=== PATIENT | male | born 1960 | race African-American/Black ===

== ENCOUNTER 2017-08-20 11:09 | Emergency (ER) | payer OTHER ==
[~2017-08-20] VITALS: Ht 182.9 cm; Wt 90.0 kg
[~2017-08-20 11:09] MED LIST: AMOX500C PO; HYDR-3533 PO
[2017-08-20 11:12] VITALS: BP 138/85; PULSE 84; RESP 16; TEMP 98.7; O2SAT 98
[2017-08-20] MEDS ORDERED: IBUP1TAB7 PO (11:43)
[2017-08-20] MEDS ORDERED: AMOX500C PO (11:43)
[2017-08-20] MEDS ORDERED: PERI0.126 SWISH-SPIT (11:43)
--- NOTE | 2017-08-20 11:44 | PD ---
HPI Chief Complaint: Oral / Dental Pain or Problem Time Seen by Provider: 11:34 Travel History International Travel<30 days: No Contact w/Intl Traveler<30days: No Traveled to known affect area: No History of Present Illness HPI 56-year-old male presents emergency Department with complaint of left lower wisdom tooth pain 3 weeks. Denies fever, vomiting. Denies facial edema. Denies ear pain, sore throat. Denies difficulty swallowing, unusual drooling. Rates pain 10/10. Has been taking [id number] medications for pain relief. No known aggravating or relieving factors. Says pain is constant. No established primary care provider. No known allergies. Denies significant past medical history. Has no other medical complaints. No other modifying factors or associated signs and symptoms. PFSH Past Medical History Medical History: Denies Significant Hx Immunizations Current: Yes Social History Alcohol Use: Yes Tobacco Use: No Substance Use: No Allergies-Medications (Allergen,Severity, Reaction): Coded Allergies: No Known Allergies (Unverified Adverse Reaction, Unknown, 08/20/17) Reported Meds & Prescriptions Reported Meds & Active Scripts Active Peridex Liq (Chlorhexidine Gluconate (Mouth) Liq) 0.12% Soln 15 Ml SWISH-SPIT BID 10 Days Ibuprofen 800 Mg Tab 800 Mg PO Q6HR PRN Amoxicillin 500 Mg Cap 500 Mg PO BID 10 Days Review of Systems Except as stated in HPI: all other systems reviewed are Neg Physical Exam Narrative GENERAL: Well-nourished, well-developed black male patient, in no acute distress ; afebrile, nontoxic-appearing SKIN: Warm and dry. HEAD: Atraumatic. Normocephalic. No facial edema, erythema, tenderness on palpation. No lymphadenopathy. EYES: Pupils equal and round. No scleral icterus. No injection or drainage. ENT: Mucosa pink and moist. No erythema or exudates. No uvular edema. No uvular , palatal, or tonsillar deviation. Airway patent. EARS: Bilateral pinnae and external canals appear within normal limits. Bilateral tympanic membranes without erythema, dullness or perforation. MOUTH: Mucous membranes moist, no lesions, tongue and gums appear normal. Tooth #17 with tenderness on palpation. Surrounding gingiva is without erythema , edema, drainage. No obvious abscess noted. NECK: Trachea midline. No lymphadenopathy. CARDIOVASCULAR: Regular rate. RESPIRATORY: No accessory muscle use. GASTROINTESTINAL: Flat. MUSCULOSKELETAL: No obvious deformities. No clubbing. No cyanosis. No edema. NEUROLOGICAL: Awake and alert. Oriented 3. No obvious cranial nerve deficits. Motor grossly within normal limits. Normal speech. PSYCHIATRIC: Appropriate mood and affect; insight and judgment normal. Data Data Last Documented VS Vital Signs Date Time Temp Pulse Resp B/P (MAP) Pulse Ox O2 Delivery O2 Flow Rate FiO2 08/20/17 12:07 08/20/17 11:12 98.7 84 16 98 Room Air Orders Orders Ketorolac Inj (Toradol Inj) (08/20/17 11:45) Ed Discharge Order (08/20/17 11:44) [facility] Medical Decision Making Medical Screen Exam Complete: Yes Emergency Medical Condition: Yes Medical Record Reviewed: Yes Differential Diagnosis Dentalgia, dental abscess, infected dental caries, gingivitis Narrative Course 56-year-old male with tooth #17 dentalgia. No facial edema, erythema. Patient is afebrile and nontoxic-appearing. Denies fever, vomiting. Toradol administered in the ER. Ibuprofen, amoxicillin, Peridex mouth rinse prescribed for home. Instructed patient to follow up with dentist. Emergency dental information sheet provided for follow-up. Instructed patient to follow up with primary care provider. Patient verbalizes understanding and agreement with treatment plan. Patient is medically cleared and stable for discharge. Discussed reasons to return to the emergency department. Patient agrees with treatment plan. The patients vital signs are stable and the patient is stable for outpatient follow-up and treatment. Patient discharged home, stable and in no acute distress. Diagnosis Primary Impression: Toothache Referrals: Dentist Primary Care Physician Patient Instructions: Dental Abscess (ED), Dental Caries (ED), General Instructions, Toothache (ED) Additional Instructions: Complete full course of antibiotics Ibuprofen or Tylenol as directed and as needed to reduce pain and inflammation Use Peridex as directed for oral hygiene Warm or cool compresses to the affected area Follow-up with dentist Follow-up with primary care provider Return to emergency department immediately with worsening of symptoms Med/Other Pt SpecificInfo: Prescription(s) given Scripts Chlorhexidine Gluconate (Mouth) Liq (Peridex Liq) 0.12% Soln 15 ML SWISH-SPIT BID for 10 Days, #300 ML 0 Refills Prov: Luisa Gonzalez 08/20/17 Ibuprofen (Ibuprofen) 800 Mg Tab 800 MG PO Q6HR Y for PAIN, #30 TAB 0 Refills Prov: Luisa Gonzalez 08/20/17 Amoxicillin (Amoxicillin) 500 Mg Cap 500 MG PO BID for Infection for 10 Days, #20 CAP 0 Refills Prov: Luisa Gonzalez 08/20/17 Disposition: 01 DISCHARGE HOME Condition: Stable Luisa Gonzalez Aug 20, 2017 11:44
[2017-08-20] MEDS ORDERED: KETOROLAC TROMETHAMINE 60 MG/2 ML (IM) VIAL IM ONE (11:45)
== END 2017-08-20 12:08 | disposition home or self-care (01) ==
LOC: NEPD 11:09
DX: K08.89 Other specified disorders of teeth and supporting structures (principal); Z72.89 Other problems related to lifestyle
CPT/HCPCS: 96372; 99284; J1885